=== PATIENT | female | born 1990 | race Caucasian/White ===

== ENCOUNTER 2017-08-10 11:38 | Emergency (ER) | payer OTHER ==
[2017-08-10 12:54] VITALS: BP 112/68
--- NOTE | 2017-08-10 13:15 | UC ---
Ear Complaint HPI - HPI Summary HPI Summary: c/o left ear pain for 2 weeks now - had dental work but no more tooth pain took tylenol with some relief. taking vitamin and trying to get or maybe no other upper respiratory symptoms present - History of Current Complaint Chief Complaint: UCEar Stated Complaint: LEFT EAR PAIN Time Seen by Provider: 08/10/17 13:06 Hx Obtained From: Patient Hx Last Menstrual Period: ~07/27/17 ?: No - trying to get pregant so could be Onset/Duration: Lasting Weeks Severity Initially: Moderate Severity Currently: Moderate Alleviating Factors: OTC Meds - Allergies/Home Medications Allergies/Adverse Reactions: Allergies Allergy/AdvReac Type Severity Reaction Status Date / Time Sulfa Antibiotics Allergy Severe rash/syncop Verified 08/10/17 12:49 e Home Medications: Home Medications Albuterol HFA INHALER* [Ventolin HFA Inhaler*] 1 - 2 puff INH Q4H PRN 08/10/17 [ History Confirmed 08/10/17] Fluticasone-Salmeterol 250-50* [Advair Diskus 250-50*] 1 puff INH DAILY [History Confirmed 08/10/17] Vitamin TAB* 1 tab PO DAILY 08/10/17 [History Confirmed 08/10/17] PMH/Surg Hx/FS Hx/Imm Hx Previously Healthy: Yes Respiratory History: Asthma - Surgical History Surgical History: Yes Surgery Procedure, Year, and Place: Right Knee Reconstruction, 2007 - Social History Alcohol Use: None Substance Use Type: None Smoking Status (MU): Never Smoked Tobacco - Immunization History Most Recent Influenza Vaccination: May 2017 Review of Systems Constitutional: Negative Skin: Negative Eyes: Negative ENT: Ear Ache - left ear Respiratory: Negative Genitourinary: Negative Psychological: Negative Is Patient Immunocompromised?: No All Other Systems Reviewed And Are Negative: Yes Physical Exam Triage Information Reviewed: Yes Vital Signs: Initial Vital Signs Temp 98.2 F 08/10/17 12:48 Pulse 76 08/10/17 12:48 Resp 16 08/10/17 12:48 BP 112/68 08/10/17 12:48 Pulse Ox 100 08/10/17 12:48 Vital Signs Reviewed: Yes Eye Exam: Normal ENT: Positive: TM bulging - left ear, TM red Respiratory Exam: Normal Cardiovascular Exam: Normal Neurological Exam: Normal Psychological Exam: Normal Ear Complaint Course/Dx - Course Course Of Treatment: take antibiotic as directed - take with food to reduce GI upset - discussed use and common side effects of med. increase fluid intake daily while on abx to prevent dehydration. if only take tylenol po every 4-6 hours for pain. f/u pcp 1 week if symptoms not resolving - Differential Dx/Diagnosis Provider Diagnoses: otitis media - left ear Discharge - Discharge Plan Condition: Good Disposition: HOME Prescriptions: Amoxicillin PO (*) [Amoxicillin 500 MG CAP*] 500 mg PO Q12H 10 Days #20 cap Patient Education Materials: Otitis Media (ED) Referrals: Arlet Trinidad PA [Primary Care Provider] - 1 Week
== END 2017-08-10 13:18 | disposition home or self-care (01) ==
LOC: UCCORT 11:38
DX: J45.909 Unspecified asthma, uncomplicated (principal); H66.92 Otitis media, unspecified, left ear
CPT/HCPCS: 99211; G0463